=== PATIENT | male | born 1995 | race African-American/Black ===

== ENCOUNTER 2019-04-07 17:35 | Emergency (ER) | payer BC ==
[2019-04-07 17:53] VITALS: BP 131/73; PULSE 82; TEMP 98; BMI 22.1
--- NOTE | 2019-04-07 18:48 | PDOC ---
History of Present Illness - General Chief Complaint: Rash Stated Complaint: RASH PRIVATE AREA STD TESTING Time Seen by Provider: 04/07/19 18:15 History Source: Patient Exam Limitations: No Limitations - History of Present Illness Initial Comments: 04/07/19 18:37 24 year old male with no significant medical or surgical history presents with rash to penis x 3 to 4 weeks after having unprotected intercourse. States small lesion now on tip of penis and burning at the end of urination. Denies penile discharge. Timing/Duration: reports: getting worse Quality: reports: mild Pain Radiation: reports: no radiation Activities at Onset: reports: none Aggravating Factors: improves with: None Alleviating Factors: improves with: None Past History - Travel Traveled outside of the country in the last 30 days: No Close contact w/someone who was outside of country & ill: No - Past Medical History Allergies/Adverse Reactions: Allergies Allergy/AdvReac Type Severity Reaction Status Date / Time shrimp Allergy Verified 04/07/19 17:53 Home Medications: Ambulatory Orders Valacyclovir HCl [Valtrex] 1,000 mg PO BID #14 tablet 04/07/19 COPD: No - Suicide/Smoking/Psychosocial Hx Smoking History: Never smoked Have you smoked in the past 12 months: Yes Number of Cigarettes Smoked Daily: 3 Information on smoking cessation initiated: No Hx Alcohol Use: No Drug/Substance Use Hx: No Substance Use Type: None Abd/GI Specific PMHX - Complaint Specific PMHX Colitis: No Diverticulitis: No Gall Bladder Disease: No GERD: No Hepatitis: No Irritable Bowel Synd (IBS): No Pancreatitis: No GI Ulcer Disease: No Review of Systems - Review of Systems Able to Perform ROS?: Yes Is the patient limited Yoruba proficient: No Constitutional: No: Chills, Fever, Loss of Appetite, Malaise HEENTM: No: Nose Pain, Nose Congestion, Throat Pain Respiratory: No: Orthopnea, SOB at Rest, Wheezing Cardiac (ROS): No: Lightheadedness ABD/GI: No: Difficulty Swallowing, Nausea, Poor Appetite, Abdominal cramping : Yes: Burning, Dysuria, Discharge, Lesions (on tip of penis) Musculoskeletal: No: Back Pain, Muscle Pain, Other Integumentary: No: Bruising, Dryness, Erythema Neurological: No: Numbness, Tingling Psychiatric: No: Stressors, Mood Swings Endocrine: No: Excessive Sweating, Flushing Hematologic/Lymphatic: No: Lymph Node Abnormalities *Physical Exam - Vital Signs Last Vital Signs Temp Pulse Resp BP Pulse Ox 98 F 82 19 131/73 100 04/07/19 17:51 04/07/19 17:51 04/07/19 17:51 04/07/19 17:51 04/07/19 17:51 - Physical Exam General Appearance: Yes: Nourished, Appropriately Dressed HEENT: positive: TMs Normal, Pharynx Normal Neck: positive: Supple. negative: Lymphadenopathy (R), Lymphadenopathy (L) Respiratory/Chest: positive: Lungs Clear Cardiovascular: positive: Regular Rhythm, Regular Rate Male Genitalia: positive: other (+ lesion to tip of penis ) Lymphatic: positive: Other (right groin lymp palpable) Neurologic: positive: Fully Oriented, Alert Medical Decision Making - Medical Decision Making 04/07/19 18:51 24 year old male with no significant medical or surgical history presents with rash to penis x 3 to 4 weeks after having unprotected intercourse. penile lesion hsv culture sent dysuria gc/chlamydia sent urinalysis sent 04/07/19 19:40 urinalysis normal rx: valtrex urine culture sent *DC/Admit/Observation/Transfer Diagnosis at time of Disposition: Penile lesion - Discharge Dispostion Disposition: HOME Condition at time of disposition: Good Decision to Admit order: No - Prescriptions Prescriptions: Valacyclovir HCl [Valtrex] 1,000 mg PO BID #14 tablet - Referrals - Patient Instructions Printed Discharge Instructions: Facts About Sexually Transmitted Infections Additional Instructions: Please refrain from sexual activity until you have received all you screening results Please call [phone] for lab results 04/10/19 after 10 am Use condoms for all future sexual contacts. Take medication as prescribed - Post Discharge Activity Forms/Work/School Notes: Back to Work
[2019-04-07 19:12] LABS: PH,URINE >= 9.0 (5.0-8.0); URINE APPEARANCE CLEAR; URINE BILIRUBIN NEGATIVE (NEGATIVE); URINE COLOR YELLOW; URINE GLUCOSE (UA) NEGATIVE (NEGATIVE); URINE KETONE NEGATIVE (NEGATIVE); URINE LEUK ESTERASE NEGATIVE (NEGATIVE); URINE NITRITE NEGATIVE (NEGATIVE); URINE PROTEIN NEGATIVE (NEGATIVE)
== END 2019-04-07 20:06 | disposition home or self-care (01) ==
LOC: JERFT 17:35
DX: N48.89 Other specified disorders of penis (principal); Z91.013 Allergy to seafood
CPT/HCPCS: 36415; 81003; 87086; 87255; 87491; 87591; 99281-25

== ENCOUNTER 2019-05-28 19:48 | Emergency (ER) | payer SELFPAY ==
[2019-05-28 19:55] VITALS: BP 117/65; PULSE 67; TEMP 97.4; BMI 20.7
[2019-05-28] MEDS ORDERED: DEXAMETHASONE LIQUID 0.5 MG/5 ML PO ONE (20:34)
--- NOTE | 2019-05-28 20:37 | PDOC ---
History of Present Illness - General Chief Complaint: Hives Stated Complaint: RASH/ITCHING Time Seen by Provider: 05/28/19 20:18 - History of Present Illness Initial Comments: 05/28/19 20:35 24-year-old male without comorbidities presents for evaluation of rash x1 day. Mildly relieved with Benadryl Past History - Past Medical History Allergies/Adverse Reactions: Allergies Allergy/AdvReac Type Severity Reaction Status Date / Time shrimp Allergy Verified 04/07/19 17:53 Home Medications: Ambulatory Orders Valacyclovir HCl [Valtrex] 1,000 mg PO BID #14 tablet 04/07/19 COPD: No - Psycho Social/Smoking Cessation Hx Smoking History: Never smoked Have you smoked in the past 12 months: Yes Number of Cigarettes Smoked Daily: 3 Hx Alcohol Use: Yes (social) Drug/Substance Use Hx: Yes ([place]) Substance Use Type: None Review of Systems - Review of Systems Constitutional: No: Fever Respiratory: No: Shortness of Breath, Wheezing Integumentary: Yes: Pruritus, Rash *Physical Exam - Vital Signs Last Vital Signs Temp Pulse Resp BP Pulse Ox 97.4 F L 67 18 117/65 100 05/28/19 19:52 05/28/19 19:52 05/28/19 19:52 05/28/19 19:52 05/28/19 19:52 - Physical Exam Comments: 05/28/19 20:35 GENERAL: The patient is awake, alert, and fully oriented, in no acute distress. HEAD: Normal with no signs of trauma. EYES: sclera anicteric, conjunctiva clear. ENT: Ears normal NECK: Normal range of motion LUNGS: Breath sounds equal, clear to auscultation bilaterally. No wheezes, and no crackles. HEART: S1 and S2 without murmur, rub or gallop. ABDOMEN: Soft, nontender, normoactive bowel sounds. No guarding, no rebound. No masses. EXTREMITIES: Normal range of motion, no edema. No clubbing or cyanosis. No cords, erythema, or tenderness. NEUROLOGICAL: Cranial nerves II through XII grossly intact. Normal speech, normal gait. PSYCH: Normal mood, normal affect. SKIN: Warm, Dry, normal turgor, multiple raised hives on the left shoulder chest and left hand Medical Decision Making - Medical Decision Making 05/28/19 20:35 Allergic rash we will treat with Decadron in the emergency room discussed use of Benadryl at home which is helped him and follow-up with primary care physician Discharge - Discharge Information Problems reviewed: Yes Clinical Impression/Diagnosis: Hives Condition: Stable Disposition: HOME - Admission No - Follow up/Referral Referrals: Maryam Grajeda MD [Staff Physician] - - Patient Discharge Instructions Additional Instructions: You were given a dose of a long-acting steroid which should should suppress your rash at home. You may continue with Benadryl. Return to the emergency room for worsening symptoms and follow-up with a primary care physician in 1 to 2 days for further evaluation and treatment options. - Post Discharge Activity
[2019-05-28] MEDS ORDERED: DEXAMETHASONE SOD PHOSPHATE 10 MG/1 ML VIAL ONE (20:40)
== END 2019-05-28 20:47 | disposition home or self-care (01) ==
LOC: JERFT 19:48 → JER 19:48 → JERFT 20:47
DX: L50.9 Urticaria, unspecified (principal); Z91.013 Allergy to seafood; Z87.891 Personal history of nicotine dependence
CPT/HCPCS: 99281-25

== ENCOUNTER 2022-09-27 20:09 | Emergency (ER) | payer BC ==
[2022-09-27 20:24] VITALS: BP 121/73; PULSE 99; RESP 18; TEMP 97.8; BMI 21.5
== END 2022-09-27 22:45 | disposition home or self-care (01) ==
LOC: JER 20:09 → JERFT 20:09
DX: S70.11XA Contusion of right thigh, initial encounter (principal); W54.0XXA Bitten by dog, initial encounter
CPT/HCPCS: 99281-25